=== PATIENT | female | born 1990 | race Caucasian/White ===

== ENCOUNTER 2017-08-12 20:38 | Emergency (ER) | payer OTHER ==
[~2017-08-12] VITALS: Ht 157.4 cm; Wt 117.9 kg
[2017-08-12] MEDS ORDERED: Motrin,Rufen800 MG PO (21:16)
== END 2017-08-13 00:25 | disposition home or self-care (01) ==
LOC: ED 20:38
DX: L55.0 Sunburn of first degree (principal)

== ENCOUNTER 2018-11-25 20:55 | Emergency (ER) | payer OTHER ==
[~2018-11-25] VITALS: Ht 160 cm; Wt 131.5 kg
[~2018-11-25 20:55] MED LIST: Motrin,Rufen800 MG PO
== END 2018-11-25 21:40 | disposition home or self-care (01) ==
LOC: ED 20:55
DX: S30.860A Insect bite (nonvenomous) of lower back and pelvis, initial encounter (principal); W57.XXXA Bitten or stung by nonvenomous insect and other nonvenomous arthropods, initial encounter; Y93.89 Activity, other specified; Y92.89 Other specified places as the place of occurrence of the external cause; Y99.8 Other external cause status